=== PATIENT | female | born 1960 | race Caucasian/White ===

== ENCOUNTER → 2023-12-27 | Outpatient (CLI) | payer OTHER ==
[~2023-12-27] MED LIST: ACE3T PO
[2023-12-27 11:28] LABS: Calcium 9.9 mg/dL (8.7-10.4)
[2023-12-27 11:34] LABS: Albumin 4.3 g/dL (3.2-4.8); BUN/Creatinine Ratio 9.1 (10.0-20.0)
[2023-12-27 11:37] LABS: Phosphorus 2.7 mg/dL (2.4-5.1)
== END | disposition home or self-care (01) ==
LOC: LAB 10:28
PROVIDERS: ATTEND Internal Medicine
DX: R10.12 Left upper quadrant pain (principal); R53.83 Other fatigue; M15.8 Other polyosteoarthritis
CPT/HCPCS: 36415; 80069; 86038

== ENCOUNTER 2023-12-29 18:49 | Emergency (ER) | payer OTHER ==
[~2023-12-29] VITALS: Ht 160 cm; Wt 83.0 kg
[2023-12-29 18:59] VITALS: BP 151/81; PULSE 82; RESP 16; TEMP 98.5; O2SAT 95
[2023-12-29] MEDS ORDERED: ACE3T PO (21:08)
[2023-12-29] MEDS: ONDANSETRON ODT 4 MG TAB PO ONE (21:13)
[2023-12-29] MEDS: HYDROcodone-ACET 5/325MG TAB PO ONE (21:13)
== END 2023-12-29 21:23 | disposition home or self-care (01) ==
LOC: ER 18:49
DX: S83.8X1A Sprain of other specified parts of right knee, initial encounter (principal); Z79.899 Other long term (current) drug therapy; W18.09XA Striking against other object with subsequent fall, initial encounter; Y93.89 Activity, other specified; Y92.89 Other specified places as the place of occurrence of the external cause; Y99.8 Other external cause status
CPT/HCPCS: 29505; 73562; 82962; 99283; Q0162